=== PATIENT | male | born 1965 | race Caucasian/White ===

== ENCOUNTER 2023-01-31 22:23 | Inpatient (IN) | payer MEDICARE, MEDICAID, SELFPAY ==
[2023-01-31 22:45] VITALS: BP 142/98; PULSE 101; RESP 16; TEMP 36.6; O2SAT 98
[2023-02-01] MEDS: LORazepam 1 MG TABLET 2 MG PO (00:41)
[2023-02-01] MEDS: Mirtazapine 15 MG TABLET PO (00:42)
[2023-02-01] MEDS: LORazepam 1 MG TABLET 0.5 MG PO ×6 (02:29→21:48)
--- NOTE | 2023-02-01 03:10 | PC.ADMIT ---
Jackson Garcia 57M @ [facility] coming in for making SI statements. Pt has been drinking daily and no longer has the will to live. Plans to walk in front of moving cars. He is cooperative and engaged, denies HI/VH/AH. No signs of psychosis or delusions. He was recently d/c from [facility] and [facility]. Has a history of withdrawal symptoms and seizures, and is currently in ETOH withdrawal. Patient is on a CIWA and has scheduled Ativan. Patient reports anxiety 8/10 with depression 8/10. Thoughts of SI, but no plan in place currently. patient denies , AH, and VH. Patient was cooperative with admission process. Patient signed in CV.
--- NOTE | 2023-02-01 06:38 | PC.NURSE ---
Jackson came in with a nip of ETOH. Reported this to security and they told me I could just dump it down the sink. The disposal of this beverage was witnessed by Ary Ford.
[2023-02-01 08:00] VITALS: BP 129/88; PULSE 100; RESP 18; TEMP 36.6; O2SAT 98
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
[2023-02-01 14:30] VITALS: BP 125/87; PULSE 100; RESP 18; TEMP 36.6; O2SAT 98
--- NOTE | 2023-02-01 19:38 | HO.PSYCHPN ---
Subjective Subjective Date of Service: 02/01/23 Reason For Visit: Depression unspecified,alcohol use Diagnostics Vital Signs (24Hr): Vital Signs - 24 hr 01/31/23 22:45 02/01/23 08:00 02/01/23 14:30 Temperature 97.9 F 97.9 F 97.9 F Pulse Rate 101 H 100 100 Respiratory Rate 16 18 18 Blood Pressure 142/98 H 129/88 125/87 Pulse Oximetry 98 98 98 Oxygen Delivery Method Room Air Room Air Room Air Medications Medications Current Medications Acetaminophen (Acetaminophen 325 Mg Tablet) 650 mg PO Q6H PRN PRN Reason: Headache/Pain Mild Scale (1-3) Al Hydroxide/Mg Hydroxide (Magnesium Hydrox/Alum Hydrox 30 Ml Oral.Susp) 30 ml PO Q6H PRN PRN Reason: Heartburn/Nausea Hydroxyzine HCl (Hydroxyzine Hcl 25 Mg Tablet) 25 mg PO Q6H PRN PRN Reason: Anxiety Lorazepam (Lorazepam 1 Mg Tablet) 1 mg PO Q4H PRN PRN Reason: Breakthrough alcohol withdrawa Stop: 02/05/23 00:04 Lorazepam (Lorazepam 1 Mg Tablet) 1 mg PO Q4H KONRAD; Taper Stop: 02/05/23 02:14 Last Admin: 02/01/23 18:06 Dose: 1 mg Magnesium Hydroxide (Milk Of Magnesia 30 Ml Oral.Susp) 30 ml PO DAILY PRN PRN Reason: Constipation Trazodone HCl (Trazodone Hcl 50 Mg Tablet) 50 mg PO BEDTIME MRX1 PRN PRN Reason: Insomnia Allergies Allergies Allergy/AdvReac Type Severity Reaction Status Date / Time No Known Allergies Allergy Verified 01/31/23 22:54 Assessment & Plan Time Spent With Patient Time: Total time managing care of this patient today ____ minutes.
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
[2023-02-01 21:30] VITALS: BP 116/76; PULSE 70; RESP 16; TEMP 36.2; O2SAT 97
[2023-02-02] MEDS: hydrOXYzine HCL 25 MG TABLET PO ×2 (00:27→18:48)
[2023-02-02] MEDS: LORazepam 1 MG TABLET 0.5 MG PO ×3 (02:13→21:18)
[2023-02-02 08:00] VITALS: BP 129/97; PULSE 93; RESP 18; TEMP 36.6; O2SAT 99
[2023-02-02 08:25] LABS: MANUAL DIFF FLAG NO
[2023-02-02 08:28] LABS: Basophils Absolute Auto 0.1 X10*3/uL (0.0-0.2); Basophils Percent Auto 1.1 % (0-2); Eosinophils Absolute Auto 0.2 X10*3/uL (0.0-0.4); Eosinophils Percent Auto 3.6 % (0-4); Hematocrit 44.3 % (42.0-52.0); Hemoglobin 14.4 g/dl (14.0-18.0); Imm Gran Abs Auto 0.02 X10*3/uL (0.00-0.03); Imm Gran Pct Auto 0.4 % (0.0-0.4); Lymphocytes Absolute Auto 1.1 X10*3/uL (1.2-4.9); Lymphocytes Percent Auto 20.4 % (20-40); Mean Corpuscular HGB Conc 32.5 g/dl (31.0-36.0); Mean Corpuscular Hemoglobin 29.7 pg (27.0-33.0); Mean Corpuscular Volume 91.3 fL (80.0-98.0); Mean Platelet Volume 10.1 fL (9.4-12.4); Monocytes Absolute Auto 0.9 X10*3/uL (0.1-1.2); Monocytes Percent Auto 15.9 % (2-11); Neutrophils Absolute Auto 3.3 x10*3/uL (2.0-8.3); Neutrophils Percent Auto 58.6 % (45-73); Platelet Count 185 X10*3/uL (160-400); Red Blood Count 4.85 X10*6/uL (4.60-5.80); Red Cell Distribution Width 15.9 % (11.0-16.0); White Blood Count 5.6 X10*3/uL (4.8-10.8)
[2023-02-02 08:45] LABS: Alanine Aminotransferase 42 U/L (0-40); Albumin Level 3.8 g/dL (3.5-5.0); Alkaline Phosphatase 66 U/L (39-117); Anion Gap 12 (12-20); Aspartate Amino Transferase 41 U/L (5-37); Bilirubin Total 0.8 mg/dL (0.0-1.0); Blood Urea Nitrogen 14 mg/dL (9-16); Calcium 9.4 mg/dL (8.4-10.2); Carbon Dioxide 28 mmol/L (22-29); Chloride 102 mmol/L (96-108); Cholesterol 208 mg/dL; Estimated Glomerular Filt Rate > 60; Glucose Fasting 105 mg/dL (60-99); HDL Cholesterol 62 mg/dL; LDL Cholesterol Calculated 127 mg/dl; Potassium 4.4 mmol/L (3.3-5.1); Sodium 138 mmol/L (135-145); Total Protein 6.6 g/dL (6.5-8.0); Triglycerides 96 mg/dL
[2023-02-02] MEDS: Thiamine HCL 100 MG TABLET PO (08:55)
[2023-02-02 09:20] LABS: Folate 6.8 ng/mL (> or = 4.0); Vitamin B12 303 pg/mL (200-900)
[2023-02-02] MEDS: chlorproMAZINE HCl 25 MG TABLET PO ×2 (14:09→21:18)
--- NOTE | 2023-02-02 16:50 | HO.PSYCHPN ---
Subjective Subjective Date of Service: 02/02/23 Reason For Visit: Depression unspecified,alcohol use Subjective Notes: Aldrich Warning and Conditional Voluntary Medical Problems Affecting Mental Status: Yes Interim History: alcohol withdrawal Medication Compliance: Yes Side effects from medications: No Attending Groups: Intermittent Review of Systems Acute medical concerns: Yes ETOH withdrawal Medical Review of Systems: unchanged Review of Systems Review of Systems h/o asthma no treatemnt recently unsteady gait ? etoh use Yes all other systems are reviewed and are negative Mental Status Exam Mental Status Exam Narrative: more cooperative, intermittently irritable, disheveled, poor hygiene, low appetite, no tremors, no sweats, no headache. reports depressed mood , hopeless, worthlessness, low energy, sad, tearful, passive SI no plan or intent, wants help, insight and judgment fair Patient Appearance: Disheveled, Unkempt and Malodorous Patient Orientation: Person, Place, Time and Situation Level of Consciousness: Appropriate, Drowsy and Follows Commands Patient Behavior: Appropriate and Anxious Mood Description: Withdrawn and Anxious (irritable at times) Affect Description: Withdrawn and Angry Patient Cognition Impaired: No Ability to Follow Directions: Good Speech Pattern: Clear Memory Description: Intact Hallucinations: None Delusions: Not Present Thought Process: Goal Oriented Thought Content: positive for Intact and positive for Goal Oriented Depressive Symptoms: Increased Anxiety, Insomnia, Diff. Making Decisions, Increased Irritability, Difficulty Sleeping, Changes in Appetite, Crying Spells, Feelings of Worthlessness, Hopelessness, Feelings of Guilt, Unhappiness, Increased Fatigue, Thoughts of /Suicide, Loss of Energy, Difficulty Concentrating and Back Pain Abnormal Motor Activity Signs and Symptoms: Restlessness Judgement: Fair Diagnostics Vital Signs (24Hr): Vital Signs - 24 hr 02/01/23 21:30 02/02/23 08:00 Temperature 97.2 F 97.9 F Pulse Rate 70 93 Respiratory Rate 16 18 Blood Pressure 116/76 129/97 H Pulse Oximetry 97 99 Oxygen Delivery Method Room Air Room Air Labs 02/02/23 08:15 02/02/23 08:15 Labs: Laboratory Results - last 48 hr 02/02/23 02/02/23 02/02/23 08:15 08:15 08:15 WBC 5.6 RBC 4.85 Hgb 14.4 Hct 44.3 MCV 91.3 MCH 29.7 MCHC 32.5 RDW 15.9 Plt Count 185 MPV 10.1 Immature Gran % (Auto) 0.4 Neut % (Auto) 58.6 Lymph % (Auto) 20.4 Yuba % (Auto) 15.9 H Eos % (Auto) 3.6 Baso % (Auto) 1.1 Lymph # (Auto) 1.1 L [place] # (Auto) 0.9 Eos # (Auto) 0.2 Baso # (Auto) 0.1 Abs Immat Gran (auto) 0.02 Absolute Neuts (auto) 3.3 Absolute Nucleated RBC 0.000 Nucleated RBC % (auto) 0.0 Sodium 138 Potassium 4.4 Chloride 102 Carbon Dioxide 28 Anion Gap 12 BUN 14 Creatinine 0.68 Estim Creat Clear Calc TNP Estimated GFR > 60 Fasting Glucose 105 H Calcium 9.4 Total Bilirubin 0.8 AST 41 H ALT 42 H Alkaline Phosphatase 66 Total Protein 6.6 Albumin 3.8 Triglycerides 96 Cholesterol 208 LDL Cholesterol, Calc 127 HDL Cholesterol 62 Vitamin B12 303 Folate 6.8 Medications Medications Current Medications Acetaminophen (Acetaminophen 325 Mg Tablet) 650 mg PO Q6H PRN PRN Reason: Headache/Pain Mild Scale (1-3) Al Hydroxide/Mg Hydroxide (Magnesium Hydrox/Alum Hydrox 30 Ml Oral.Susp) 30 ml PO Q6H PRN PRN Reason: Heartburn/Nausea Chlorpromazine HCl (Chlorpromazine Hcl 25 Mg Tablet) 25 mg PO BID [facility] Last Admin: 02/02/23 14:09 Dose: 25 mg Hydroxyzine HCl (Hydroxyzine Hcl 25 Mg Tablet) 25 mg PO Q6H PRN PRN Reason: Anxiety Last Admin: 02/02/23 00:27 Dose: 25 mg Lorazepam (Lorazepam 1 Mg Tablet) 1 mg PO Q4H PRN PRN Reason: Breakthrough alcohol withdrawa Stop: 02/05/23 00:04 Lorazepam (Lorazepam 1 Mg Tablet) 1 mg PO Q6H KONRAD; Taper Stop: 02/05/23 02:14 Last Admin: 02/02/23 14:14 Dose: Not Given Magnesium Hydroxide (Milk Of Magnesia 30 Ml Oral.Susp) 30 ml PO DAILY PRN PRN Reason: Constipation Mirtazapine (Mirtazapine 15 Mg Tablet) 15 mg PO BEDTIME [facility] Thiamine HCl (Thiamine Hcl 100 Mg Tablet) 100 mg PO DAILY [facility] Last Admin: 02/02/23 08:55 Dose: 100 mg Trazodone HCl (Trazodone Hcl 50 Mg Tablet) 50 mg PO BEDTIME MRX1 PRN PRN Reason: Insomnia Allergies Allergies Allergy/AdvReac Type Severity Reaction Status Date / Time No Known Allergies Allergy Verified 01/31/23 22:54 Assessment & Plan Assessment & Plan (1) Suicidal ideation: Status: Acute Code(s): R45.851 - Suicidal ideations (2) Alcohol dependence: Status: Acute Code(s): F10.20 - Alcohol dependence, uncomplicated (3) Major depression, recurrent: Status: Acute Code(s): F33.9 - Major depressive disorder, recurrent, unspecified Plan 57 yr old male with suidicde ideation in context of alcohol intoxication; rule out MDD Plan: CV 15 min checks continue CIWA and ativan for withdrawal symptoms per protocol restart remeron 15 mg at bedtime and titrate as tolerated restart thorazine 25 mg bid and titrate as needed/tolerated labs: CHem profile, LFTS CBC, B12 and folate collect collateral information discharge planning with team -possible [facility] referral Patient educated on: diagnosis, medication risk/benefits and therapeutic strategies Informed Consent: understands and further education needed Reason for continued inpatient stay Substantial Risk for: harm to self, inability to function and rapid decompensation Time Spent With Patient Time: Total time managing care of this patient today __25__ minutes.
--- NOTE | 2023-02-02 17:03 | PC.NURSE ---
1630 Observed Jackson in his room and appears to be sleeping.
--- NOTE | 2023-02-02 18:50 | PC.NURSE ---
pt admits to just having a stool with bright red blood described as a small amount Pt reports its from my drinking Pt verbalized understanding to tell staff when he sees bloody stools.
[2023-02-02 21:05] VITALS: BP 115/88; PULSE 102; RESP 18; O2SAT 98
[2023-02-02] MEDS: Mirtazapine 15 MG TABLET PO (21:18)
[2023-02-03] MEDS: hydrOXYzine HCL 25 MG TABLET PO ×3 (04:57→16:08)
[2023-02-03 08:15] VITALS: BP 137/85; PULSE 91; RESP 16; TEMP 36.5; O2SAT 99
[2023-02-03] MEDS: Thiamine HCL 100 MG TABLET PO (08:16)
[2023-02-03] MEDS: chlorproMAZINE HCl 25 MG TABLET PO ×3 (08:16→21:25)
[2023-02-03] MEDS: LORazepam 1 MG TABLET 0.5 MG PO (08:19)
[2023-02-03 09:11] LABS: Alanine Aminotransferase 51 U/L (0-40); Albumin Level 4.3 g/dL (3.5-5.0); Alkaline Phosphatase 82 U/L (39-117); Anion Gap 16 (12-20); Aspartate Amino Transferase 38 U/L (5-37); Bilirubin Direct 0.2 mg/dL (0.0-0.5); Bilirubin Total 0.4 mg/dL (0.0-1.0); Blood Urea Nitrogen 18 mg/dL (9-16); Calcium 9.7 mg/dL (8.4-10.2); Carbon Dioxide 27 mmol/L (22-29); Chloride 104 mmol/L (96-108); Estimated Glomerular Filt Rate > 60; Glucose Random 99 mg/dL (60-115); Potassium 5.2 mmol/L (3.3-5.1); Sodium 142 mmol/L (135-145); Total Protein 7.6 g/dL (6.5-8.0)
--- NOTE | 2023-02-03 09:35 | P.PNPSI_ITS ---
Subjective Subjective Date of Service: 02/03/23 Reason For Visit: Depression unspecified,alcohol use Subjective Notes: Conditional Voluntary Interim History: Patient with irritability and dysphoria no significant withdrawal symptoms. Describes history of bipolar diagnosis question of mixed symptoms has not felt that naltrexone was helpful in the past was stable in the past mirtazapine and Thorazine. Medication Compliance: Yes Attending Groups: Yes Review of Systems alcohol detox Mental Status Exam Mental Status Exam Narrative: r Patient Appearance: Disheveled, Unkempt and Malodorous Patient Orientation: Person, Place, Time and Situation Level of Consciousness: Appropriate and Follows Commands Patient Behavior: Appropriate and Anxious Mood Description: Withdrawn, Depressed and Anxious (irritable at times) Affect Description: Withdrawn and Angry Patient Cognition Impaired: No Ability to Follow Directions: Good Speech Pattern: Clear Memory Description: Intact Hallucinations: None Delusions: Not Present Thought Process: Goal Oriented Thought Content: positive for Intact and positive for Goal Oriented Depressive Symptoms: Increased Anxiety, Insomnia, Diff. Making Decisions, Increa sed Irritability, Difficulty Sleeping, Changes in Appetite, Crying Spells, Feelings of Worthlessness, Hopelessness, Feelings of Guilt, Unhappiness, Increased Fatigue, Thoughts of /Suicide, Loss of Energy, Difficulty Concentrating and Back Pain Abnormal Motor Activity Signs and Symptoms: Restlessness Judgement: Fair Diagnostics Vital Signs (24Hr): Vital Signs - 24 hr 02/02/23 21:05 02/03/23 08:15 Temperature 97.7 F Pulse Rate 102 H 91 Respiratory Rate 18 16 Blood Pressure 115/88 137/85 Pulse Oximetry 98 99 Oxygen Delivery Method Room Air Room Air Labs 02/02/23 08:15 02/03/23 08:11 Labs: Laboratory Results - last 48 hr 02/02/23 02/02/23 02/02/23 08:15 08:15 08:15 WBC 5.6 RBC 4.85 Hgb 14.4 Hct 44.3 MCV 91.3 MCH 29.7 MCHC 32.5 RDW 15.9 Plt Count 185 MPV 10.1 Immature Gran % (Auto) 0.4 Neut % (Auto) 58.6 Lymph % (Auto) 20.4 Sullivan % (Auto) 15.9 H Eos % (Auto) 3.6 Baso % (Auto) 1.1 Lymph # (Auto) 1.1 L Sullivan # (Auto) 0.9 Eos # (Auto) 0.2 Baso # (Auto) 0.1 Abs Immat Gran (auto) 0.02 Absolute Neuts (auto) 3.3 Absolute Nucleated RBC 0.000 Nucleated RBC % (auto) 0.0 Sodium 138 Potassium 4.4 Chloride 102 Carbon Dioxide 28 Anion Gap 12 BUN 14 Creatinine 0.68 Estim Creat Clear Calc TNP Estimated GFR > 60 Random Glucose Fasting Glucose 105 H Calcium 9.4 Total Bilirubin 0.8 Direct Bilirubin AST 41 H ALT 42 H Alkaline Phosphatase 66 Total Protein 6.6 Albumin 3.8 Triglycerides 96 Cholesterol 208 LDL Cholesterol, Calc 127 HDL Cholesterol 62 Vitamin B12 303 Folate 6.8 02/03/23 08:11 WBC RBC Hgb Hct MCV MCH MCHC RDW Plt Count MPV Immature Gran % (Auto) Neut % (Auto) Lymph % (Auto) Sullivan % (Auto) Eos % (Auto) Baso % (Auto) Lymph # (Auto) Sullivan # (Auto) Eos # (Auto) Baso # (Auto) Abs Immat Gran (auto) Absolute Neuts (auto) Absolute Nucleated RBC Nucleated RBC % (auto) Sodium 142 Potassium 5.2 H Chloride 104 Carbon Dioxide 27 Anion Gap 16 BUN 18 H Creatinine 0.69 Estim Creat Clear Calc TNP Estimated GFR > 60 Random Glucose 99 Fasting Glucose Calcium 9.7 Total Bilirubin 0.4 Direct Bilirubin 0.2 AST 38 H ALT 51 H Alkaline Phosphatase 82 Total Protein 7.6 Albumin 4.3 Triglycerides Cholesterol LDL Cholesterol, Calc HDL Cholesterol Vitamin B12 Folate Medications Medications Current Medications Acetaminophen (Acetaminophen 325 Mg Tablet) 650 mg PO Q6H PRN PRN Reason: Headache/Pain Mild Scale (1-3) Al Hydroxide/Mg Hydroxide (Magnesium Hydrox/Alum Hydrox 30 Ml Oral.Susp) 30 ml PO Q6H PRN PRN Reason: Heartburn/Nausea Chlorpromazine HCl (Chlorpromazine Hcl 25 Mg Tablet) 25 mg PO BID KON[facility] Last Admin: 02/03/23 08:16 Dose: 25 mg Hydroxyzine HCl (Hydroxyzine Hcl 25 Mg Tablet) 25 mg PO Q6H PRN PRN Reason: Anxiety Last Admin: 02/03/23 04:57 Dose: 25 mg Lorazepam (Lorazepam 1 Mg Tablet) 1 mg PO Q4H PRN PRN Reason: Breakthrough alcohol withdrawa Stop: 02/05/23 00:04 Lorazepam (Lorazepam 1 Mg Tablet) 0.5 mg PO Q6H KONRAD; Taper Stop: 02/05/23 02:14 Last Admin: 02/03/23 08:19 Dose: 0.5 mg Magnesium Hydroxide (Milk Of Magnesia 30 Ml Oral.Susp) 30 ml PO DAILY PRN PRN Reason: Constipation Mirtazapine (Mirtazapine 15 Mg Tablet) 15 mg PO BEDTIME [facility]ON[facility] Last Admin: 02/02/23 21:18 Dose: 15 mg Thiamine HCl (Thiamine Hcl 100 Mg Tablet) 100 mg PO DAILY [facility]ON[facility] Last Admin: 02/03/23 08:16 Dose: 100 mg Trazodone HCl (Trazodone Hcl 50 Mg Tablet) 50 mg PO BEDTIME [id number] PRN PRN Reason: Insomnia Allergies Allergies Allergy/AdvReac Type Severity Reaction Status Date / Time No Known Allergies Allergy Verified 01/31/23 22:54 Assessment & Plan Assessment & Plan (1) Bipolar 2 disorder, major depressive episode: Status: Acute Code(s): F31.81 - Bipolar II disorder (2) Alcohol dependence: Status: Acute Code(s): F10.20 - Alcohol dependence, uncomplicated Plan Patient with history of alcohol dependence and mood disorder. Lorazepam for detox on CIWA scale. Patient has felt he states best on Thorazine in the past up to 50 mg 3 times a day asking for increase in Thorazine however would lower seizure threshold will hold off for now increase mirtazapine to 30 mg at bedtime. Patient given literature regarding bipolar disorder States he was given diagnosis at [facility] . No current psychiatric treatment. Discussed different treatment options for today increase Thorazine 25 t.i.d. continued to see if needs his CIWA for detox might benefit from Latuda states he has been on lithium in the past but complained of side effects. Would benefit from ongoing treatment reviewed risks benefits alternatives Patient educated on: diagnosis and medication risk/benefits Informed Consent: further education needed Reason for continued inpatient stay Substantial Risk for: harm to self Time Spent With Patient Time: Total time managing care of this patient today _25___ minutes.
[2023-02-03 09:45] LABS: Folate 6.4 ng/mL (> or = 4.0); Vitamin B12 365 pg/mL (200-900)
[2023-02-03] MEDS: Folic Acid 1 MG TABLET PO (14:09)
[2023-02-03 21:24] VITALS: BP 135/88; PULSE 95; RESP 18; TEMP 36.4; O2SAT 98
[2023-02-03] MEDS: Mirtazapine 30 MG TABLET PO (21:25)
[2023-02-04] MEDS: hydrOXYzine HCL 25 MG TABLET PO ×3 (06:19→17:54)
[2023-02-04] MEDS: Folic Acid 1 MG TABLET PO (08:27)
[2023-02-04] MEDS: Thiamine HCL 100 MG TABLET PO (08:27)
[2023-02-04] MEDS: chlorproMAZINE HCl 25 MG TABLET PO ×2 (08:27→14:29)
[2023-02-04 08:52] VITALS: BP 140/90; PULSE 86; RESP 18; TEMP 36.4; O2SAT 98
[2023-02-04] MEDS: chlorproMAZINE HCl 25 MG TABLET 50 MG PO ×2 (15:08→20:53)
[2023-02-04] MEDS: Mirtazapine 30 MG TABLET PO (20:53)
[2023-02-04 21:06] VITALS: BP 103/69; PULSE 84; TEMP 36.6; O2SAT 96
--- NOTE | 2023-02-04 22:05 | P.PNPSI_ITS ---
Subjective Subjective Date of Service: 02/04/23 Reason For Visit: Depression unspecified,alcohol use Interim History: pt denies alcohol withdrawal Sx. continues to c/o depression, despairing of any medication which will ever be substantially helpful for him. reports trials on celexa, trazodone, remeron, elavil, wellbutrin, all without substantial relief of symptoms. MD cavazos ECT, pt denies ever having had a trial. expresses interest. [er staff, dep/anx 10. unsafe thoughts. +AH. crying. ativan taper DCed. poor sleep. denies SI/HI. appeared to sleep 9:30-5:45. Mental Status Exam Mental Status Exam Narrative: disheveled. cooperative. no PMA/PMR. speech nml rate, amount, loudness, latency. decreased prosody. thoughts linear and logical without evidence of delusions or paranoia. affect constricted, normo-intense, non-labile. mood depressed. no SI/HI/AVH expressed. Diagnostics Vital Signs (24Hr): Vital Signs - 24 hr 02/04/23 08:52 02/04/23 21:06 Temperature 97.6 F 97.9 F Pulse Rate 86 84 Respiratory Rate 18 Blood Pressure 140/90 H 103/69 Pulse Oximetry 98 96 Oxygen Delivery Method Room Air Room Air Labs 02/02/23 08:15 02/03/23 08:11 Labs: Laboratory Results - last 48 hr 02/03/23 08:11 Sodium 142 Potassium 5.2 H Chloride 104 Carbon Dioxide 27 Anion Gap 16 BUN 18 H Creatinine 0.69 Estim Creat Clear Calc TNP Estimated GFR > 60 Random Glucose 99 Calcium 9.7 Total Bilirubin 0.4 Direct Bilirubin 0.2 AST 38 H ALT 51 H Alkaline Phosphatase 82 Total Protein 7.6 Albumin 4.3 Vitamin B12 365 Folate 6.4 Medications Medications Current Medications Acetaminophen (Acetaminophen 325 Mg Tablet) 650 mg PO Q6H PRN PRN Reason: Headache/Pain Mild Scale (1-3) Al Hydroxide/Mg Hydroxide (Magnesium Hydrox/Alum Hydrox 30 Ml Oral.Susp) 30 ml PO Q6H PRN PRN Reason: Heartburn/Nausea Chlorpromazine HCl (Chlorpromazine Hcl 25 Mg Tablet) 50 mg PO TID KONRAD Last Admin: 02/04/23 20:53 Dose: 50 mg Folic Acid (Folic Acid 1 Mg Tablet) 1 mg PO DAILY [facility] Last Admin: 02/04/23 08:27 Dose: 1 mg Hydroxyzine HCl (Hydroxyzine Hcl 25 Mg Tablet) 25 mg PO Q6H PRN PRN Reason: Anxiety Last Admin: 02/04/23 17:54 Dose: 25 mg Lorazepam (Lorazepam 1 Mg Tablet) 1 mg PO Q4H PRN PRN Reason: ciwa between 8-15 Stop: 02/05/23 00:04 Magnesium Hydroxide (Milk Of Magnesia 30 Ml Oral.Susp) 30 ml PO DAILY PRN PRN Reason: Constipation Mirtazapine (Mirtazapine 30 Mg Tablet) 30 mg PO BEDTIME KON[facility] Last Admin: 02/04/23 20:53 Dose: 30 mg Thiamine HCl (Thiamine Hcl 100 Mg Tablet) 100 mg PO DAILY [facility] Last Admin: 02/04/23 08:27 Dose: 100 mg Trazodone HCl (Trazodone Hcl 50 Mg Tablet) 50 mg PO BEDTIME MRX1 PRN PRN Reason: Insomnia Allergies Allergies Allergy/AdvReac Type Severity Reaction Status Date / Time No Known Allergies Allergy Verified 01/31/23 22:54 Assessment & Plan Assessment & Plan (1) Bipolar 2 disorder, major depressive episode: Status: Acute Code(s): F31.81 - Bipolar II disorder (2) Alcohol dependence: Status: Acute Code(s): F10.20 - Alcohol dependence, uncomplicated Plan 02/01: CIWA and ativan for withdrawal symptoms per protocol. hospitalist consult. labs: CHem profile, LFTS CBC, B12 and folate. collect collateral information. discharge planning with team -possible [facility] referral 02/02: continue CIWA and ativan for withdrawal symptoms per protocol. restart remeron 15 mg at bedtime and titrate as tolerated. restart thorazine 25 mg bid and titrate as needed/tolerated 02/03: Patient has felt he states best on Thorazine in the past up to 50 mg 3 times a day asking for increase in Thorazine however would lower seizure threshold will hold off for now. increase mirtazapine to 30 mg at bedtime. Patient given literature regarding bipolar disorder. States he was given diagn osis at [facility] . No current psychiatric treatment. Discussed different treatment options for today increase Thorazine 25 t.i.d. continued to see if needs his CIWA for detox might benefit from Latuda states he has been on lithium in the past but complained of side effects. Would benefit from ongoing treatment reviewed risks benefits alternatives. 02/04: per staff, was c/o dep/anx 06/10, +AH in past day, crying as well. feels antidepressant medications have been disappointing in their efficacy for him. interested in ECT. EKG, med clearance, romina consult placed. Patient educated on: ECT Reason for continued inpatient stay Substantial Risk for: harm to self, inability to function and rapid decompensat ion Time Spent With Patient Time: Total time managing care of this patient today __35__ minutes.
[2023-02-05] MEDS: hydrOXYzine HCL 25 MG TABLET PO ×3 (05:49→18:17)
[2023-02-05 06:00] VITALS: BP 163/94; PULSE 106; RESP 16; TEMP 36.6; O2SAT 99
[2023-02-05] MEDS: Folic Acid 1 MG TABLET PO (08:44)
[2023-02-05] MEDS: Thiamine HCL 100 MG TABLET PO (08:44)
[2023-02-05] MEDS: chlorproMAZINE HCl 25 MG TABLET 50 MG PO ×2 (08:44→14:52)
[2023-02-05 10:24] VITALS: BP 121/82; PULSE 101
--- NOTE | 2023-02-05 13:53 | PM.EVENT ---
Event Note Date of Service: 02/05/23 Event Note: Attempted to see patient this morning for ECT clearance. However, patient refuses exam stating he will not be ungoing ECT treatment due to concerns with the anesthesia and the procedure efficacy. Exam not completed. Message sent to provider. Should be change his mind, please let me know and will proceed with exam for clearance. Time Spent With Patient Time: Total time managing care of this patient today ____ minutes.
--- NOTE | 2023-02-05 15:25 | P.PNPSI_ITS ---
Subjective Subjective Date of Service: 02/05/23 Reason For Visit: Depression unspecified,alcohol use Interim History: discussed pt's desire to NOT go ahead with ECT and explored other treatments as well as the context in which they failed. it appears pt was trying other antidepressants while abusing substances, which essentially invalidates the trials. asks for remeron to be DCed, which is done. c/o persistent depression. agrees to trial of wellbutrin, R/B discussed, including Sz, insomnia, agitation, anxiety. also discuss aids to stop alcohol use, pt agrees to trial of naltrexone (which he has been on in the past); R/B including liver damage discussed. for insomnia, pt agrees to increase thorazine to 200 tonight. per staff, increased anxiety and depression. isolative, withdrawn. eating, poor sleep (DFA). racing thoughts. doesn't want to do ECT. Mental Status Exam Mental Status Exam Narrative: disheveled. cooperative. no PMA/PMR. speech nml rate, amount, loudness, latency. decreased prosody. thoughts linear and logical without evidence of delusions or paranoia. affect constricted, normo-intense, non-labile. mood depressed. no SI/HI/AVH expressed. Diagnostics Vital Signs (24Hr): Vital Signs - 24 hr 02/04/23 21:06 02/05/23 06:00 02/05/23 10:24 Temperature 97.9 F 97.8 F Pulse Rate 84 106 H 101 H Respiratory Rate 16 Blood Pressure 103/69 163/94 H 121/82 Pulse Oximetry 96 99 Oxygen Delivery Method Room Air Room Air Labs 02/02/23 08:15 02/03/23 08:11 Medications Medications Current Medications Acetaminophen (Acetaminophen 325 Mg Tablet) 650 mg PO Q6H PRN PRN Reason: Headache/Pain Mild Scale (1-3) Al Hydroxide/Mg Hydroxide (Magnesium Hydrox/Alum Hydrox 30 Ml Oral.Susp) 30 ml PO Q6H PRN PRN Reason: Heartburn/Nausea Bupropion HCl (Bupropion Hcl Xl 150 Mg Tab.Er.24h) 150 mg PO DAILY [facility] Chlorpromazine HCl (Chlorpromazine Hcl 25 Mg Tablet) 50 mg PO BID@0900,1500 [facility] Last Admin: 02/05/23 14:52 Dose: 50 mg Chlorpromazine HCl (Chlorpromazine Hcl 100 Mg Tablet) 200 mg PO BEDTIME [facility]ON[facility] Folic Acid (Folic Acid 1 Mg Tablet) 1 mg PO DAILY [facility] Last Admin: 02/05/23 08:44 Dose: 1 mg Hydroxyzine HCl (Hydroxyzine Hcl 25 Mg Tablet) 25 mg PO Q6H PRN PRN Reason: Anxiety Last Admin: 02/05/23 12:16 Dose: 25 mg Magnesium Hydroxide (Milk Of Magnesia 30 Ml Oral.Susp) 30 ml PO DAILY PRN PRN Reason: Constipation Naltrexone HCl (Naltrexone Hcl 50 Mg Tablet) 50 mg PO DAILY [facility] Thiamine HCl (Thiamine Hcl 100 Mg Tablet) 100 mg PO DAILY [facility] Last Admin: 02/05/23 08:44 Dose: 100 mg Trazodone HCl (Trazodone Hcl 50 Mg Tablet) 50 mg PO BEDTIME MRX1 PRN PRN Reason: Insomnia Allergies Allergies Allergy/AdvReac Type Severity Reaction Status Date / Time No Known Allergies Allergy Verified 01/31/23 22:54 Assessment & Plan Assessment & Plan (1) Bipolar 2 disorder, major depressive episode: Status: Acute Code(s): F31.81 - Bipolar II disorder (2) Alcohol dependence: Status: Acute Code(s): F10.20 - Alcohol dependence, uncomplicated Plan 02/01: CIWA and ativan for withdrawal symptoms per protocol. hospitalist consult. labs: CHem profile, LFTS CBC, B12 and folate. collect collateral information. discharge planning with team -possible [facility] referral 02/02: continue CIWA and ativan for withdrawal symptoms per protocol. restart remeron 15 mg at bedtime and titrate as tolerated. restart thorazine 25 mg bid and titrate as needed/tolerated 02/03: Patient has felt he states best on Thorazine in the past up to 50 mg 3 times a day asking for increase in Thorazine however would lower seizure thres hold will hold off for now. increase mirtazapine to 30 mg at bedtime. Patient given literature regarding bipolar disorder. States he was given diagnosis at [facility] . No current psychiatric treatment. Discussed different treatment options for today increase Thorazine 25 t.i.d. continued to see if needs his CIWA for detox might benefit from Latuda states he has been on lithium in the past but complained of side effects. Would benefit from ongoing treatment reviewed risks benefits alternatives. 02/04: per staff, was c/o dep/anx 06/10, +AH in past day, crying as well. feels antidepressant medications have been disappointing in their efficacy for him. interested in ECT. EKG, med clearance, romina consult placed. 02/05: with further info, declines to pursue ECT. reframes anti-depressant failure as in the context of substance abuse, agres to re-trial of wellbutrin. remeron DCed per pt request, thorazine at HS increased to 200 mg. naltrexone 50 mg to be started tomorrow. Reason for continued inpatient stay Substantial Risk for: harm to self, inability to function and rapid decompensation Time Spent With Patient Time: Total time managing care of this patient today __35__ minutes.
[2023-02-05] MEDS: chlorproMAZINE HCl 100 MG TABLET 200 MG PO (20:18)
[2023-02-05 20:20] VITALS: BP 155/89; PULSE 116; TEMP 36.6; O2SAT 97
[2023-02-05] MEDS: traZODone HCL 50 MG TABLET PO (21:51)
[2023-02-06] MEDS: hydrOXYzine HCL 25 MG TABLET PO ×3 (04:55→18:32)
[2023-02-06 07:00] VITALS: BMI 31.7
[2023-02-06 08:00] VITALS: BP 143/89; PULSE 104; RESP 18; TEMP 36.2; O2SAT 98
[2023-02-06] MEDS: Thiamine HCL 100 MG TABLET PO (08:10)
[2023-02-06] MEDS: Folic Acid 1 MG TABLET PO (08:10)
[2023-02-06] MEDS: buPROPion HCl XL 150 MG TAB.ER.24H PO (08:10)
[2023-02-06] MEDS: Naltrexone HCl 50 MG TABLET PO (08:10)
[2023-02-06] MEDS: chlorproMAZINE HCl 25 MG TABLET 50 MG PO ×3 (08:10→20:48)
[2023-02-06] MEDS: Lithium Carbonate ER 300 MG TABLET.ER 600 MG PO ×2 (11:15→20:48)
--- NOTE | 2023-02-06 13:15 | HO.PSYCHPN ---
Subjective Subjective Date of Service: 02/06/23 Reason For Visit: Depression unspecified,alcohol use Interim History: calm, cooperative. states he did not sleep well las tnight and wants to stop the thorazine. was restless and wide awake, perhaps akathisia. agree to stop thorazine at HS. pt reports he had some trazodone which was helpful, agrees to schedule trazodone at HS with repeat. discussion held about bipolar Dx and his insomnia, lack of sedation with thorazine, racing thoughts. pt agrees to trial of lithium for presumed bipolar disorder. per staff, eating well, tossing and turning all NOC. Mental Status Exam Mental Status Exam Narrative: adequately dressed and groomed. cooperative. no PMA/PMR. speech nml rate, amount, loudness, latency. decreased prosody. thoughts linear and logical without evidence of delusions or paranoia. affect constricted, normo-intense, non-labile. mood depressed. no SI/HI/AVH expressed. Diagnostics Vital Signs (24Hr): Vital Signs - 24 hr 02/05/23 20:20 02/06/23 08:00 Temperature 97.9 F 97.2 F Pulse Rate 116 H 104 H Respiratory Rate 18 Blood Pressure 155/89 H 143/89 H Pulse Oximetry 97 98 Oxygen Delivery Method Room Air Room Air BMI result Body Mass Index 31.7 Labs 02/02/23 08:15 02/03/23 08:11 Medications Medications Current Medications Acetaminophen (Acetaminophen 325 Mg Tablet) 650 mg PO Q6H PRN PRN Reason: Headache/Pain Mild Scale (1-3) Al Hydroxide/Mg Hydroxide (Magnesium Hydrox/Alum Hydrox 30 Ml Oral.Susp) 30 ml PO Q6H PRN PRN Reason: Heartburn/Nausea Bupropion HCl (Bupropion Hcl Xl 150 Mg Tab.Er.24h) 150 mg PO DAILY [facility] Last Admin: 02/06/23 08:10 Dose: 150 mg Chlorpromazine HCl (Chlorpromazine Hcl 25 Mg Tablet) 50 mg PO TID [facility] Folic Acid (Folic Acid 1 Mg Tablet) 1 mg PO DAILY [facility] Last Admin: 02/06/23 08:10 Dose: 1 mg Hydroxyzine HCl (Hydroxyzine Hcl 25 Mg Tablet) 25 mg PO Q6H PRN PRN Reason: Anxiety Last Admin: 02/06/23 10:59 Dose: [address] [place] Carbonate ([place] Carbonate Er 300 Mg Tablet.Er) 600 mg PO BID [facility] Last Admin: 02/06/23 11:15 Dose: 600 mg Magnesium Hydroxide (Milk Of Magnesia 30 Ml Oral.Susp) 30 ml PO DAILY PRN PRN Reason: Constipation Naltrexone HCl (Naltrexone Hcl 50 Mg Tablet) 50 mg PO DAILY [facility] Last Admin: 02/06/23 08:10 Dose: 50 mg Thiamine HCl (Thiamine Hcl 100 Mg Tablet) 100 mg PO DAILY [facility] Last Admin: 02/06/23 08:10 Dose: 100 mg Trazodone HCl (Trazodone Hcl 50 Mg Tablet) 50 mg PO BEDTIME MRX1 PRN PRN Reason: Insomnia Last Admin: 02/05/23 21:51 Dose: 50 mg Trazodone HCl (Trazodone Hcl 50 Mg Tablet) 50 mg PO BEDTIME [facility] Allergies Allergies Allergy/AdvReac Type Severity Reaction Status Date / Time No Known Allergies Allergy Verified 01/31/23 22:54 Assessment & Plan Assessment & Plan (1) Bipolar 2 disorder, major depressive episode: Status: Acute Code(s): F31.81 - Bipolar II disorder (2) Alcohol dependence: Status: Acute Code(s): F10.20 - Alcohol dependence, uncomplicated Plan 02/01: CIWA and ativan for withdrawal symptoms per protocol. hospitalist consult. labs: CHem profile, LFTS CBC, B12 and folate. collect collateral information. discharge planning with team -possible [facility] referral 02/02: continue CIWA and ativan for withdrawal symptoms per protocol. restart remeron 15 mg at bedtime and titrate as tolerated. restart thorazine 25 mg bid and titrate as needed/tolerated 02/03: Patient has felt he states best on Thorazine in the past up to 50 mg 3 times a day asking for increase in Thorazine however would lower seizure threshold will hold off for now. increase mirtazapine to 30 mg at bedtime. Patient given literature regarding bipolar disorder. States he was given diagnosis at [facility] . No current psychiatric treatment. Discussed different treatment options for today increase Thorazine 25 t.i.d. continued to see if needs his CIWA for detox might benefit from Latuda states he has been on lithium in the past but complained of side effects. Would benefit from ongoing treatment reviewed risks benefits alternatives. 02/04: per staff, was c/o dep/anx 06/10, +AH in past day, crying as well. feels antidepressant medications have been disappointing in their efficacy for him. interested in ECT. EKG, med clearance, romina consult placed. 02/05: with further info, declines to pursue ECT. reframes anti-depressant failure as in the context of substance abuse, agres to re-trial of wellbutrin. remeron DCed per pt request, thorazine at HS increased to 200 mg. naltrexone 50 mg to be started tomorrow. 02/06: DC HS thorazine 200; schedule trazodone 50 with repeat PRN. trial of lithium due to insomnia, lack of sedating effect of 200 mg thorazine, racing thoughts. Reason for continued inpatient stay Substantial Risk for: harm to self, inability to function and rapid decompensation Time Spent With Patient Time: Total time managing care of this patient today __35__ minutes.
[2023-02-06 20:47] VITALS: BP 134/84; PULSE 94; RESP 18; TEMP 36.5; O2SAT 99
[2023-02-06] MEDS: traZODone HCL 50 MG TABLET PO (20:48)
[2023-02-07] MEDS: traZODone HCL 50 MG TABLET PO (00:10)
[2023-02-07] MEDS: hydrOXYzine HCL 25 MG TABLET PO ×3 (04:03→16:31)
[2023-02-07 08:00] VITALS: BP 144/77; PULSE 91; RESP 18; TEMP 37; O2SAT 98
[2023-02-07] MEDS: buPROPion HCl XL 150 MG TAB.ER.24H PO (08:06)
[2023-02-07] MEDS: chlorproMAZINE HCl 25 MG TABLET 50 MG PO ×3 (08:06→20:03)
[2023-02-07] MEDS: Thiamine HCL 100 MG TABLET PO (08:06)
[2023-02-07] MEDS: Folic Acid 1 MG TABLET PO (08:07)
[2023-02-07] MEDS: Lithium Carbonate ER 300 MG TABLET.ER 600 MG PO ×2 (08:07→20:03)
[2023-02-07] MEDS: Naltrexone HCl 50 MG TABLET PO (08:07)
--- NOTE | 2023-02-07 14:54 | P.PNPSI_ITS ---
Subjective Subjective Date of Service: 02/07/23 Reason For Visit: Depression unspecified,alcohol use Interim History: c/o insomnia, otherwise feeling well. agreeable to increase trazodone to 200 mg tonight. will work with on-call providers over weekend on insomnia as needed. per staf, variably pleasant and irritable/rude. denies SI/HI. safe on unit. irritable re rules and limit-setting. intrusive in others' business. difficulty sleeping. Mental Status Exam Mental Status Exam Narrative: adequately dressed and groomed. cooperative. no PMA/PMR. speech nml rate, amount, loudness, latency. decreased prosody. thoughts linear and logical without evidence of delusions or paranoia. affect constricted, normo-intense, non-labile. mood depressed. no SI/HI/AVH expressed. Diagnostics Vital Signs (24Hr): Vital Signs - 24 hr 02/06/23 20:47 02/07/23 08:00 Temperature 97.7 F 98.6 F Pulse Rate 94 91 Respiratory Rate 18 18 Blood Pressure 134/84 144/77 H Pulse Oximetry 99 98 Oxygen Delivery Method Room Air Room Air BMI result Body Mass Index 31.7 Labs 02/02/23 08:15 02/03/23 08:11 Medications Medications Current Medications Acetaminophen (Acetaminophen 325 Mg Tablet) 650 mg PO Q6H PRN PRN Reason: Headache/Pain Mild Scale (1-3) Al Hydroxide/Mg Hydroxide (Magnesium Hydrox/Alum Hydrox 30 Ml Oral.Susp) 30 ml PO Q6H PRN PRN Reason: Heartburn/Nausea Bupropion HCl (Bupropion Hcl Xl 150 Mg Tab.Er.24h) 150 mg PO DAILY [facility] Last Admin: 02/07/23 08:06 Dose: 150 mg Chlorpromazine HCl (Chlorpromazine Hcl 25 Mg Tablet) 50 mg PO TID [facility] Last Admin: 02/07/23 14:04 Dose: 50 mg Folic Acid (Folic Acid 1 Mg Tablet) 1 mg PO DAILY [facility] Last Admin: 02/07/23 08:07 Dose: 1 mg Hydroxyzine HCl (Hydroxyzine Hcl 25 Mg Tablet) 25 mg PO Q6H PRN PRN Reason: Anxiety Last Admin: 02/07/23 10:36 Dose: 25 mg [place] Carbonate ([place] Carbonate Er 300 Mg Tablet.Er) 600 mg PO BID [facility] Last Admin: 02/07/23 08:07 Dose: 600 mg Magnesium Hydroxide (Milk Of Magnesia 30 Ml Oral.Susp) 30 ml PO DAILY PRN PRN Reason: Constipation Naltrexone HCl (Naltrexone Hcl 50 Mg Tablet) 50 mg PO DAILY [facility] Last Admin: 02/07/23 08:07 Dose: 50 mg Thiamine HCl (Thiamine Hcl 100 Mg Tablet) 100 mg PO DAILY [facility] Last Admin: 02/07/23 08:06 Dose: 100 mg Trazodone HCl (Trazodone Hcl 50 Mg Tablet) 50 mg PO BEDTIME MRX1 PRN PRN Reason: Insomnia Last Admin: 02/07/23 00:10 Dose: 50 mg Trazodone HCl (Trazodone Hcl 100 Mg Tablet) 200 mg PO BEDTIME [facility] Allergies Allergies Allergy/AdvReac Type Severity Reaction Status Date / Time No Known Allergies Allergy Verified 01/31/23 22:54 Assessment & Plan Assessment & Plan (1) Bipolar 2 disorder, major depressive episode: Status: Acute Code(s): F31.81 - Bipolar II disorder (2) Alcohol dependence: Status: Acute Code(s): F10.20 - Alcohol dependence, uncomplicated Plan 02/01: CIWA and ativan for withdrawal symptoms per protocol. hospitalist consult. labs: CHem profile, LFTS CBC, B12 and folate. collect collateral information. discharge planning with team -possible [facility] referral 02/02: continue CIWA and ativan for withdrawal symptoms per protocol. restart remeron 15 mg at bedtime and titrate as tolerated. restart thorazine 25 mg bid and titrate as needed/tolerated 02/03: Patient has felt he states best on Thorazine in the past up to 50 mg 3 times a day asking for increase in Thorazine however would lower seizure t hreshold will hold off for now. increase mirtazapine to 30 mg at bedtime. Patient given literature regarding bipolar disorder. States he was given diagnosis at [facility] . No current psychiatric treatment. Discussed different treatment options for today increase Thorazine 25 t.i.d. continued to see if needs his CIWA for detox might benefit from [facility] states he has been on lithium in the past but complained of side effects. Would benefit from ongoing treatment reviewed risks benefits alternatives. 02/04: per staff, was c/o dep/anx 10/, +AH in past day, crying as well. feels antidepressant medications have been disappointing in their efficacy for him. interested in ECT. EKG, med clearance, romina consult placed. 02/05: with further info, declines to pursue ECT. reframes anti-depressant failure as in the context of substance abuse, agres to re-trial of wellbutrin. remeron DCed per pt request, thorazine at HS increased to 200 mg. naltrexone 50 mg to be started tomorrow. 02/06: DC HS thorazine 200; schedule trazodone 50 with repeat PRN. trial of lithium due to insomnia, lack of sedating effect of 200 mg thorazine, racing thoughts. 02/07: increase trazodone to 200 QHS with repeat of 50 PRN. otherwise continue prior Tx. may need further changes over w/e for insomnia. Reason for continued inpatient stay Substantial Risk for: harm to self, inability to function and rapid decompensation Time Spent With Patient Time: Total time managing care of this patient today _35___ minutes.
--- NOTE | 2023-02-07 17:50 | PC.NURSE ---
Pt refused to participate in admission assessment. Tobacco use unknown.
[2023-02-07 20:02] VITALS: BP 136/89; PULSE 103; RESP 18; TEMP 36.6; O2SAT 97
[2023-02-07] MEDS: traZODone HCL 100 MG TABLET 200 MG PO (20:03)
[2023-02-08] MEDS: hydrOXYzine HCL 25 MG TABLET PO ×3 (03:18→15:40)
[2023-02-08 06:00] VITALS: BP 133/84; PULSE 90; RESP 18; TEMP 36.7; O2SAT 99
[2023-02-08] MEDS: Folic Acid 1 MG TABLET PO (08:04)
[2023-02-08] MEDS: Thiamine HCL 100 MG TABLET PO (08:04)
[2023-02-08] MEDS: chlorproMAZINE HCl 25 MG TABLET 50 MG PO ×3 (08:04→20:44)
[2023-02-08] MEDS: buPROPion HCl XL 150 MG TAB.ER.24H PO (08:04)
[2023-02-08] MEDS: Naltrexone HCl 50 MG TABLET PO (08:04)
[2023-02-08] MEDS: Lithium Carbonate ER 300 MG TABLET.ER 600 MG PO ×2 (08:05→20:43)
--- NOTE | 2023-02-08 13:46 | P.PNPSI_ITS ---
Subjective Subjective Date of Service: 02/08/23 Reason For Visit: Depression unspecified,alcohol use Interim History: Patient seen and discussed with team. He says I like the Caro and Trazodone. I will probably get rid of the antidepressants because they take a long time to work. He is sleeping well with the Trazodone. He is somewhat intense in his affect. Denies SI/HI/AVH. Says he would like to see a psychiatrist after DC. Some irritability with staff noted. Review of Systems Review of Systems Chronic bright red blood per rectum Morning shakes Hx of fall past year associated with heavy drinking Yes all other systems are reviewed and are negative Mental Status Exam Mental Status Exam Narrative: adequately dressed and groomed. cooperative. no PMA/PMR. speech nml rate, amount, loudness, latency. decreased prosody. thoughts linear and logical without evidence of delusions or paranoia. affect constricted, normo-intense, non-labile. mood depressed. no SI/HI/AVH expressed. Patient Appearance: Disheveled, Unkempt and Malodorous Patient Orientation: Person, Place, Time and Situation Level of Consciousness: Appropriate and Follows Commands Patient Behavior: Appropriate and Anxious Mood Description: Withdrawn, Depressed and Anxious (irritable at times) Affect Description: Withdrawn and Angry Patient Cognition Impaired: No Ability to Follow Directions: Good Speech Pattern: Clear Memory Description: Intact Diagnostics Vital Signs (24Hr): Vital Signs - 24 hr 02/07/23 20:02 02/08/23 06:00 Temperature 97.8 F 98.0 F Pulse Rate 103 H 90 Respiratory Rate 18 18 Blood Pressure 136/89 133/84 Pulse Oximetry 97 99 Oxygen Delivery Method Room Air Room Air BMI result Body Mass Index 31.7 Labs 02/02/23 08:15 02/03/23 08:11 Medications Medications Current Medications Acetaminophen (Acetaminophen 325 Mg Tablet) 650 mg PO Q6H PRN PRN Reason: Headache/Pain Mild Scale (1-3) Al Hydroxide/Mg Hydroxide (Magnesium Hydrox/Alum Hydrox 30 Ml Oral.Susp) 30 ml PO Q6H PRN PRN Reason: Heartburn/Nausea Bupropion HCl (Bupropion Hcl Xl 150 Mg Tab.Er.24h) 150 mg PO DAILY [facility] Last Admin: 02/08/23 08:04 Dose: 150 mg Chlorpromazine HCl (Chlorpromazine Hcl 25 Mg Tablet) 50 mg PO TID [facility] Last Admin: 02/08/23 08:04 Dose: 50 mg Folic Acid (Folic Acid 1 Mg Tablet) 1 mg PO DAILY [facility] Last Admin: 02/08/23 08:04 Dose: 1 mg Hydroxyzine HCl (Hydroxyzine Hcl 25 Mg Tablet) 25 mg PO Q6H PRN PRN Reason: Anxiety Last Admin: 02/08/23 09:47 Dose: 25 mg [place] Carbonate ([place] Carbonate Er 300 Mg Tablet.Er) 600 mg PO BID [facility] Last Admin: 02/08/23 08:05 Dose: 600 mg Magnesium Hydroxide (Milk Of Magnesia 30 Ml Oral.Susp) 30 ml PO DAILY PRN PRN Reason: Constipation Naltrexone HCl (Naltrexone Hcl 50 Mg Tablet) 50 mg PO DAILY [facility] Last Admin: 02/08/23 08:04 Dose: 50 mg Thiamine HCl (Thiamine Hcl 100 Mg Tablet) 100 mg PO DAILY [facility] Last Admin: 02/08/23 08:04 Dose: 100 mg Trazodone HCl (Trazodone Hcl 50 Mg Tablet) 50 mg PO BEDTIME MRX1 PRN PRN Reason: Insomnia Last Admin: 02/07/23 00:10 Dose: 50 mg Trazodone HCl (Trazodone Hcl 100 Mg Tablet) 200 mg PO BEDTIME [facility] Last Admin: 02/07/23 20:03 Dose: 200 mg Allergies Allergies Allergy/AdvReac Type Severity Reaction Status Date / Time No Known Allergies Allergy Verified 01/31/23 22:54 Assessment & Plan Assessment & Plan (1) Bipolar 2 disorder, major depressive episode: Status: Acute Code(s): F31.81 - Bipolar II disorder (2) Alcohol dependence: Status: Acute Code(s): F10.20 - Alcohol dependence, uncomplicated Plan 02/01: CIWA and ativan for withdrawal symptoms per protocol. hospitalist consult. labs: CHem profile, LFTS CBC, B12 and folate. collect collateral information. discharge planning with team -possible [facility] referral 02/02: continue CIWA and ativan for withdrawal symptoms per protocol. restart remeron 15 mg at bedtime and titrate as tolerated. restart thorazine 25 mg bid and titrate as needed/tolerated 02/03: Patient has felt he states best on Thorazine in the past up to 50 mg 3 times a day asking for increase in Thorazine however would lower seizure threshold will hold off for now. increase mirtazapine to 30 mg at bedtime. Patient given literature regarding bipolar disorder. States he was given diagnosis at [facility] . No current psychiatric treatment. Discussed different treatment options for today increase Thorazine 25 t.i.d. continued to see if needs his CIWA for detox might benefit from [facility] states he has been on lithium in the past but complained of side effects. Would benefit from ongoing treatment reviewed risks benefits alternatives. 02/04: per staff, was c/o dep/anx 06/10, +AH in past day, crying as well. feels antidepressant medications have been disappointing in their efficacy for him. interested in ECT. EKG, med clearance, romina consult placed. 02/05: with further info, declines to pursue ECT. reframes anti-depressant failure as in the context of substance abuse, agres to re-trial of wellbutrin. remeron DCed per pt request, thorazine at HS increased to 200 mg. naltrexone 50 mg to be started tomorrow. 02/06: DC HS thorazine 200; schedule trazodone 50 with repeat PRN. trial of lithium due to insomnia, lack of sedating effect of 200 mg thorazine, racing thoughts. 02/07: increase trazodone to 200 QHS with repeat of 50 PRN. otherwise continue prior Tx. may need further changes over w/e for insomnia. 02/08: Says he slept well with the increase in Trazodone. Denies side effects. Continue current treatment plan. Reason for continued inpatient stay Substantial Risk for: harm to self, harm to others and rapid decompensation Time Spent With Patient Time: Total time managing care of this patient today ____ minutes.
[2023-02-08 20:42] VITALS: BP 131/85; PULSE 89; RESP 18; TEMP 36.4; O2SAT 96
[2023-02-08] MEDS: traZODone HCL 50 MG TABLET PO (20:43)
[2023-02-08] MEDS: traZODone HCL 100 MG TABLET 200 MG PO (20:43)
[2023-02-09] MEDS: traZODone HCL 50 MG TABLET PO ×2 (01:30→20:25)
[2023-02-09] MEDS: hydrOXYzine HCL 25 MG TABLET PO ×3 (06:59→19:30)
[2023-02-09 07:55] VITALS: BP 113/84; PULSE 92; RESP 16; TEMP 36.6; O2SAT 96
[2023-02-09] MEDS: Lithium Carbonate ER 300 MG TABLET.ER 600 MG PO ×2 (08:00→20:26)
[2023-02-09] MEDS: chlorproMAZINE HCl 25 MG TABLET 50 MG PO ×3 (08:00→20:25)
--- NOTE | 2023-02-09 15:27 | HO.PSYCHPN ---
Subjective Subjective Date of Service: 02/09/23 Reason For Visit: Depression unspecified,alcohol use Interim History: Patient seen and discussed with team. He refused Wellbutrin and Naltrexone today. He wants to get off them. He feels they are not helpful. Less is more. Wants to eventually get rid of either Thorazine or Hydroxyzine but ambivalent about that because they both help. He is sleeping well with the Trazodone 200 mg + 50mg PRN. He is somewhat intense in his affect. Denies SI/HI/AVH. Review of Systems Review of Systems Chronic bright red blood per rectum Morning shakes Hx of fall past year associated with heavy drinking Yes all other systems are reviewed and are negative Mental Status Exam Mental Status Exam Narrative: adequately dressed and groomed. cooperative. no PMA/PMR. speech nml rate, amount, loudness, latency. decreased prosody. thoughts linear and logical without evidence of delusions or paranoia. affect constricted, normo-intense, non-labile. mood depressed. no SI/HI/AVH expressed. Patient Appearance: Disheveled, Unkempt and Malodorous Patient Orientation: Person, Place, Time and Situation Level of Consciousness: Appropriate and Follows Commands Patient Behavior: Appropriate and Anxious Mood Description: Withdrawn, Depressed and Anxious (irritable at times) Affect Description: Withdrawn and Angry Patient Cognition Impaired: No Ability to Follow Directions: Good Speech Pattern: Clear Memory Description: Intact Diagnostics Vital Signs (24Hr): Vital Signs - 24 hr 02/08/23 20:42 02/09/23 07:55 Temperature 97.6 F 97.9 F Pulse Rate 89 92 Respiratory Rate 18 16 Blood Pressure 131/85 113/84 Pulse Oximetry 96 96 Oxygen Delivery Method Room Air Room Air BMI result Body Mass Index 31.7 Labs 02/02/23 08:15 02/03/23 08:11 Medications Medications Current Medications Acetaminophen (Acetaminophen 325 Mg Tablet) 650 mg PO Q6H PRN PRN Reason: Headache/Pain Mild Scale (1-3) Al Hydroxide/Mg Hydroxide (Magnesium Hydrox/Alum Hydrox 30 Ml Oral.Susp) 30 ml PO Q6H PRN PRN Reason: Heartburn/Nausea Bupropion HCl (Bupropion Hcl Xl 150 Mg Tab.Er.24h) 150 mg PO DAILY [facility] Last Admin: 02/09/23 09:00 Dose: Not Given Chlorpromazine HCl (Chlorpromazine Hcl 25 Mg Tablet) 50 mg PO TID [facility] Last Admin: 02/09/23 14:32 Dose: 50 mg Folic Acid (Folic Acid 1 Mg Tablet) 1 mg PO DAILY [facility] Last Admin: 02/09/23 09:00 Dose: Not Given Hydroxyzine HCl (Hydroxyzine Hcl 25 Mg Tablet) 25 mg PO Q6H PRN PRN Reason: Anxiety Last Admin: 02/09/23 13:05 Dose: 25 mg [place] Carbonate ([place] Carbonate Er 300 Mg Tablet.Er) 600 mg PO BID [facility] Last Admin: 02/09/23 08:00 Dose: 600 mg Magnesium Hydroxide (Milk Of Magnesia 30 Ml Oral.Susp) 30 ml PO DAILY PRN PRN Reason: Constipation Naltrexone HCl (Naltrexone Hcl 50 Mg Tablet) 50 mg PO DAILY [facility] Last Admin: 02/09/23 09:00 Dose: Not Given Thiamine HCl (Thiamine Hcl 100 Mg Tablet) 100 mg PO DAILY [facility] Last Admin: 02/09/23 09:00 Dose: Not Given Trazodone HCl (Trazodone Hcl 50 Mg Tablet) 50 mg PO BEDTIME MRX1 PRN PRN Reason: Insomnia Last Admin: 02/09/23 01:30 Dose: 50 mg Trazodone HCl (Trazodone Hcl 100 Mg Tablet) 200 mg PO BEDTIME [facility] Last Admin: 02/08/23 20:43 Dose: 200 mg Allergies Allergies Allergy/AdvReac Type Severity Reaction Status Date / Time No Known Allergies Allergy Verified 01/31/23 22:54 Assessment & Plan Assessment & Plan (1) Bipolar 2 disorder, major depressive episode: Status: Acute Code(s): F31.81 - Bipolar II disorder (2) Alcohol dependence: Status: Acute Code(s): F10.20 - Alcohol dependence, uncomplicated Plan 02/01: CIWA and ativan for withdrawal symptoms per protocol. hospitalist consult. labs: CHem profile, LFTS CBC, B12 and folate. collect collateral information. discharge planning with team -possible [facility] referral 02/02: continue CIWA and ativan for withdrawal symptoms per protocol. restart remeron 15 mg at bedtime and titrate as tolerated. restart thorazine 25 mg bid and titrate as needed/tolerated 02/03: Patient has felt he states best on Thorazine in the past up to 50 mg 3 times a day asking for increase in Thorazine however would lower seizure threshold will hold off for now. increase mirtazapine to 30 mg at bedtime. Patient given literature regarding bipolar disorder. States he was given diagnosis at [facility] . No current psychiatric treatment. Discussed different treatment options for today increase Thorazine 25 t.i.d. continued to see if needs his CIWA for detox might benefit from [facility] states he has been on lithium in the past but complained of side effects. Would benefit from ongoing treatment reviewed risks benefits alternatives. 02/04: per staff, was c/o dep/anx 06/10, +AH in past day, crying as well. feels antidepressant medications have been disappointing in their efficacy for him. interested in ECT. EKG, med clearance, romina consult placed. 02/05: with further info, declines to pursue ECT. reframes anti-depressant failure as in the context of substance abuse, agres to re-trial of wellbutrin. remeron DCed per pt request, thorazine at HS increased to 200 mg. naltrexone 50 mg to be started tomorrow. 02/06: DC HS thorazine 200; schedule trazodone 50 with repeat PRN. trial of lithium due to insomnia, lack of sedating effect of 200 mg thorazine, racing thoughts. 02/07: increase trazodone to 200 QHS with repeat of 50 PRN. otherwise continue prior Tx. may need further changes over w/e for insomnia. 02/08: Says he slept well with the increase in Trazodone. Denies side effects. Continue current treatment plan. 02/09: Self DCd Wellbutrin and Naltrexone saying they are ineffective and because less is more . Reason for continued inpatient stay Substantial Risk for: harm to self, inability to function and rapid decompensation Time Spent With Patient Time: Total time managing care of this patient today ____ minutes.
[2023-02-09 20:18] VITALS: BP 121/67; PULSE 89; TEMP 36.5; O2SAT 97
[2023-02-09] MEDS: traZODone HCL 100 MG TABLET 200 MG PO (20:25)
[2023-02-10] MEDS: hydrOXYzine HCL 25 MG TABLET PO ×2 (03:31→10:18)
[2023-02-10] MEDS: chlorproMAZINE HCl 25 MG TABLET 50 MG PO ×3 (08:25→21:01)
[2023-02-10] MEDS: Lithium Carbonate ER 300 MG TABLET.ER 600 MG PO ×2 (08:25→21:00)
[2023-02-10 08:40] LABS: Lithium 0.71 mmol/L (0.60-1.20)
[2023-02-10 09:16] VITALS: BP 117/76; PULSE 110; RESP 18; TEMP 36.6; O2SAT 94
[2023-02-10] MEDS: chlorproMAZINE HCl 25 MG TABLET PO ×2 (14:04→18:14)
--- NOTE | 2023-02-10 15:29 | HO.PSYCHPN ---
Subjective Subjective Date of Service: 02/10/23 Reason For Visit: Depression unspecified,alcohol use Interim History: states he does not want to take either wellbutrin or naltrexone. happy with just lithium, trazodone, and thorazine. discuss dispo planning, informed of plan for weds DC. states he is homeless and will call his mother to see if he can stay there (informed SW at admission that he is not homeless). also will begin calling rehabs. per staff, irritable. c/o insomnia. had verbal altercation with roommate. no SI/HI/AVH. loves it here. slept 10-4:30. Mental Status Exam Mental Status Exam Narrative: adequately dressed and groomed. cooperative. no PMA/PMR. speech nml rate, incr amount, nml loudness, decr latency, nml prosody. thoughts linear and logical without evidence of delusions or paranoia. affect flexible, normo-intense, non-labile. mood depressed. no SI/HI/AVH expressed. Diagnostics Vital Signs (24Hr): Vital Signs - 24 hr 02/09/23 20:18 02/10/23 09:16 Temperature 97.7 F 97.9 F Pulse Rate 89 110 H Respiratory Rate 18 Blood Pressure 121/67 117/76 Pulse Oximetry 97 94 Oxygen Delivery Method Room Air Room Air BMI result Body Mass Index 31.7 Labs 02/02/23 08:15 02/03/23 08:11 Labs: Laboratory Results - last 48 hr 02/10/23 08:12 [place] 0.71 Medications Medications Current Medications Acetaminophen (Acetaminophen 325 Mg Tablet) 650 mg PO Q6H PRN PRN Reason: Headache/Pain Mild Scale (1-3) Al Hydroxide/Mg Hydroxide (Magnesium Hydrox/Alum Hydrox 30 Ml Oral.Susp) 30 ml PO Q6H PRN PRN Reason: Heartburn/Nausea Chlorpromazine HCl (Chlorpromazine Hcl 25 Mg Tablet) 50 mg PO TID [facility] Last Admin: 02/10/23 14:37 Dose: 50 mg Chlorpromazine HCl (Chlorpromazine Hcl 25 Mg Tablet) 25 mg PO QID PRN PRN Reason: anxiety/agitation Last Admin: 02/10/23 14:04 Dose: 25 mg Folic Acid (Folic Acid 1 Mg Tablet) 1 mg PO DAILY [facility] Last Admin: 02/10/23 08:34 Dose: Not Given [place] Carbonate ([place] Carbonate Er 300 Mg Tablet.Er) 600 mg PO BID [facility] Last Admin: 02/10/23 08:25 Dose: 600 mg Magn[place] Hydroxide (Milk Of Magnesia 30 Ml Oral.Susp) 30 ml PO DAILY PRN PRN Reason: Constipation Thiamine HCl (Thiamine Hcl 100 Mg Tablet) 100 mg PO DAILY [facility] Last Admin: 02/10/23 08:34 Dose: Not Given Trazodone HCl (Trazodone Hcl 50 Mg Tablet) 50 mg PO BEDTIME MRX1 PRN PRN Reason: Insomnia Last Admin: 02/09/23 20:25 Dose: 50 mg Trazodone HCl (Trazodone Hcl 100 Mg Tablet) 200 mg PO BEDTIME [facility] Last Admin: 02/09/23 20:25 Dose: 200 mg Allergies Allergies Allergy/AdvReac Type Severity Reaction Status Date / Time No Known Allergies Allergy Verified 01/31/23 22:54 Assessment & Plan Assessment & Plan (1) Bipolar 2 disorder, major depressive episode: Status: Acute Code(s): F31.81 - Bipolar II disorder (2) Alcohol dependence: Status: Acute Code(s): F10.20 - Alcohol dependence, uncomplicated Plan 02/01: CIWA and ativan for withdrawal symptoms per protocol. hospitalist consult. labs: CHem profile, LFTS CBC, B12 and folate. collect collateral information. discharge planning with team -possible [facility] referral 02/02: continue CIWA and ativan for withdrawal symptoms per protocol. restart remeron 15 mg at bedtime and titrate as tolerated. restart thorazine 25 mg bid and titrate as needed/tolerated 02/03: Patient has felt he states best on Thorazine in the past up to 50 mg 3 times a day asking for increase in Thorazine however would lower seizure threshold will hold off for now. increase mirtazapine to 30 mg at bedtime. Patient given literature regarding bipolar disorder. States he was given diagnosis at [facility] . No current psychiatric treatment. Discussed different treatment options for today increase Thorazine 25 t.i.d. continued to see if needs his CIWA for detox might benefit from [facility] states he has been on lithium in the past but complained of side effects. Would benefit from ongoing treatment reviewed risks benefits alternatives. 02/04: per staff, was c/o dep/anx 10/10, +AH in past day, crying as well. feels antidepressant medications have been disappointing in their efficacy for him. interested in ECT. EKG, med clearance, romina consult placed. 02/05: with further info, declines to pursue ECT. reframes anti-depressant failure as in the context of substance abuse, agres to re-trial of wellbutrin. remeron DCed per pt request, thorazine at HS increased to 200 mg. naltrexone 50 mg to be started tomorrow. 02/06: DC HS thorazine 200; schedule trazodone 50 with repeat PRN. trial of lithium due to insomnia, lack of sedating effect of 200 mg thorazine, racing thoughts. 02/07: increase trazodone to 200 QHS with repeat of 50 PRN. otherwise continue prior Tx. may need further changes over w/e for insomnia. 02/08: Says he slept well with the increase in Trazodone. Denies side effects. Continue current treatment plan. 02/09: Self DCd Wellbutrin and Naltrexone saying they are ineffective and because less is more . 02/10: wellbutrin and naltrexone orders DCed at pt request. planning to DC weds to either home or [facility]. full affect, personable to particular persons, rude and irritable with others. Reason for continued inpatient stay Substantial Risk for: rapid decompensation Time Spent With Patient Time: Total time managing care of this patient today _25___ minutes.
[2023-02-10 20:00] VITALS: BP 111/73; PULSE 100; RESP 16; TEMP 36.6; O2SAT 99
[2023-02-10] MEDS: traZODone HCL 100 MG TABLET 200 MG PO (21:00)
[2023-02-11] MEDS: chlorproMAZINE HCl 25 MG TABLET PO ×3 (03:36→16:58)
[2023-02-11] MEDS: Lithium Carbonate ER 300 MG TABLET.ER 600 MG PO ×2 (08:27→20:28)
[2023-02-11] MEDS: chlorproMAZINE HCl 25 MG TABLET 50 MG PO ×3 (08:27→20:28)
[2023-02-11 09:00] VITALS: BP 125/79; PULSE 84; RESP 18; TEMP 36.7; O2SAT 95
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
[2023-02-11 20:00] VITALS: BP 120/73; PULSE 86; RESP 16; TEMP 36.6; O2SAT 96
[2023-02-11] MEDS: traZODone HCL 100 MG TABLET 200 MG PO (20:28)
[2023-02-12] MEDS: traZODone HCL 50 MG TABLET PO (00:28)
[2023-02-12] MEDS: chlorproMAZINE HCl 25 MG TABLET PO ×2 (02:49→07:34)
[2023-02-12 06:00] VITALS: BP 120/78; PULSE 82; RESP 16; TEMP 36.6; O2SAT 97
[2023-02-12] MEDS: chlorproMAZINE HCl 25 MG TABLET 50 MG PO (08:00)
[2023-02-12] MEDS: Lithium Carbonate ER 300 MG TABLET.ER 600 MG PO (08:00)
== END 2023-02-12 10:21 | disposition home or self-care (01) | DRG 885 ==
PROVIDERS: Clinical Nurse Specialist Psychiatric/Mental Health; Psychiatry & Neurology Psychiatry; Admitting Provider Psychiatry & Neurology Psychiatry; Visit Provider Psychiatry & Neurology Psychiatry
DX: F31.81 Bipolar II disorder (principal); R45.851 Suicidal ideations; K62.5 Hemorrhage of anus and rectum; F10.20 Alcohol dependence, uncomplicated; F17.290 Nicotine dependence, other tobacco product, uncomplicated; Z71.6 Tobacco abuse counseling; Z87.820 Personal history of traumatic brain injury; Z59.02 Unsheltered homelessness; Z79.899 Other long term (current) drug therapy
CPT/HCPCS: 36415; 80048; 80053; 80061; 80076; 80178; 82607; 82746; 85025